=== PATIENT | female | born 1985 ===

== ENCOUNTER 2016-09-10 18:57 | Inpatient (IN) | payer MEDICAID, SELFPAY ==
[2016-09-10 19:30] VITALS: BMI 28.9
[2016-09-10 21:21] LABS: BASO # 0.1 K/uL (0.0-0.2); BASO % 0.6 % (0.0-2.0); EOS % 19.1 % (0.0-4.0); HEMATOCRIT 26.7 % (34.0-47.0); LYMPH # 1.7 K/uL (1.0-4.3); LYMPH % 16.6 % (20.0-40.0); MEAN CELL VOLUME 72.2 fl (81.0-99.0); MEAN CORPUSCULAR HEMOGLOBIN 22.3 pg (27.0-31.0); MEAN CORPUSCULAR HGB CONC 30.9 g/dL (33.0-37.0); MEAN PLATELET VOLUME 10.4 fl (7.2-11.7); MONO # 0.6 K/uL (0.0-0.8); MONO % 5.4 % (0.0-10.0); NEUT % 58.3 % (50.0-75.0); NRBC % 0.1 % (0.0-0.0); RED CELL DISTRIBUTION WIDTH 18.9 % (11.5-14.5); WHITE BLOOD COUNT 10.4 K/uL (4.8-10.8)
[2016-09-10 21:58] VITALS: BP 112/70; PULSE 106; RESP 18; TEMP 98; O2SAT 100
[2016-09-10] MEDS ORDERED: Lidocaine 1% Inj (20ml) ONE (22:12)
--- NOTE | 2016-09-11 00:19 | OBADHP ---
Datetime: 09/10/2016 19:27 IP Chief Complaint Other: BPD lagging by 4 weeks Admit Comment, IP Provider: 30 yo , At 39 weeks GA by LMP 12/12/15, first US at 6 weeks. KAMRAN: 09/17/16 presents to [facility] referred from the [facility] for IOL due to BPD lagging by 4 weeks. Patient denies uterine Ctx, LOF, VB, dysuria, fever, headache, N/V/D. care [facility]. last US 09/04/16 BPP 10/10, BOUBACAR: 10.6. POBHx: x 4 full term. Hx/o fast delivery.Anemia PGYnHx: Fibroids 2,4 cm retroplacental. LGSIL +HPV. Allergies: Penicillin (Ampicillin). Rash reaction, blurry vision Meds: PNV, Iron 1 tab TID x the last 2 weeks PSurgHx: Appendectomy PSHx: No ETOH,rect drugs, cig GBS: neg ABO-Rh: A+ Antibody: neg RPR: neg HIV: neg HBsAg: neg Rubella: immune GC/C: neg PPD: unknown.placed but did not go for reading.however,CXR neg. TDap: placed Flu: placed Assessment/Plan: 30 yo , At 39 weeks GA. IOL due to BPD lagging by 4 weeks. -Admit L _ D -Continous monitoring -CBC, Type screen -Cervidil Marion Cagle PGY [address] Hernandez ob pt seen _ exmined by me with dr. cagle. agree with above. Pelvic Type - PN: Adequate Extremities - PN: Normal Abdomen - PN: Normal Back - PN: Normal Breast - PN: Normal Lungs - PN: Normal Heart - PN: Normal Thyroid - PN: Normal Neurologic - PN: Normal HEENT - PN: Normal General - PN: Normal FHR - Baseline A Provider: 140 Membranes, Provider: Intact Contraction Comments Provider: irregular every 18 min Comments, ACOG Physical Exam: US Bedside: vertex Vital Signs Provider: Reviewed; Within Normal Limits IP Chief Complaint: Scheduled induction of labor; Other NICHD Variability Prov Fetus A: Moderate 6-25bpm NICHD Accel Fetus A IP Provider: [id number] FHR Category Provider Fetus A: Category I NICHD Decel Fetus A IP Provider: None Dilatation, Provider: closed Effacement, Provider: 50% Station, Provider: -3 Genitourinary Exam: Normal DTRs - PN: Normal IP Adm Impression: Term, intrauterine IP Admit Plan: Admit to unit
[2016-09-11] MEDS ORDERED: Lactated Ringer's 1,000 ML IV SCH (06:45)
[2016-09-11] MEDS ORDERED: Oxytocin 30 units/LR 500ML 30 U/500 ML BAG IV ONE (08:08)
[2016-09-11] MEDS ORDERED: Fentanyl/Bupivacaine HCl 250 ML EPI ONE (08:33)
[2016-09-11] MEDS ORDERED: Bupivacaine HCl 0.25% PF (10 ml) Inj ONE (08:33)
[2016-09-11] MEDS ORDERED: Oxytocin 30 units/LR 500ML 30 U/500 ML BAG IV SCH (10:40)
--- NOTE | 2016-09-11 10:49 | OBDS ---
MATERNAL INFORMATION Provider Comments: Pt pushed to deliver a viable female infant through clear fluid at 10:21 am. Apga rs 9 and 9. Wt 3025 gms, 6#10.7. Mouth and nares bulb-suctioned. Infant placed on mother's abdomen . Cord clamped and cut. Cord blood collected. Bladder emptied w/ red rubber catheter. Placenta de livered spontaneously intact w/ a 3vc at 10:27am. No tears. Pt and baby tolerated the procedure wel l. EBL 150 LABOR SUMMARY EDC: 09/17/2016 00:00 LABOR INFORMATION Cervical Ripening Agents: Cervidil MEMBRANES Membranes Rupture Method: Spontaneous Amniotic Fluid Color: Clear Amniotic Fluid Amount: Small Amniotic Fluid Odor: Normal
[2016-09-12 06:45] LABS: BASO # 0.1 K/uL (0.0-0.2); BASO % 0.8 % (0.0-2.0); EOS % 10.7 % (0.0-4.0); LYMPH % 21.3 % (20.0-40.0); MEAN CORPUSCULAR HEMOGLOBIN 22.5 pg (27.0-31.0); MEAN CORPUSCULAR HGB CONC 31.7 g/dL (33.0-37.0); MONO # 0.7 K/uL (0.0-0.8); MONO % 7.4 % (0.0-10.0); NEUT # 5.5 K/uL (1.8-7.0); NEUT % 59.8 % (50.0-75.0); NRBC % 0.1 % (0.0-0.0); WHITE BLOOD COUNT 9.3 K/uL (4.8-10.8)
--- NOTE | 2016-09-12 09:38 | OBPPN ---
Datetime: 09/12/2016 06:03 PP Pain Prov: Within normal limits PP Nausea Prov: Denies PP Flatus Prov: Yes PP BM Prov: No PP Breasts Prov: Normal PP Heart Prov: Normal PP Lungs Prov: Normal PP Abdomen/Uterus Prov: Normal PP Lochia Prov: Normal PP Vulva/Perineum Prov: Normal PP Extremities Prov: Normal PP C/S Incision Prov: Not Applicable PP Progress Prov: Normal PP Comments Phys Exam Prov: Uterus: firm above umbilicus PP Impression Prov: Normal progression PP Plan Prov: Continue present management PP Progress Note Prov: 30 y/o seen and examined at bedside. Patient had uneventful overnig ht. Patient reports mild pelvic pain controlled w/ pain meds. OOB/Ambulating w/o dizziness. Breast /bottle feeding w/o difficulty. Tolerating PO diet well. Lochia is less than menses in volume. Voi ding freely w/ no blood noted. Reports flatus but not bowel movement yest. Denies fevers, chills, n /v/d, CP/SOB, lightheadedness and calf pain. Assessment: 30 y/o s/p on 09/11/2016 @ 10:21 am tolerating pain w/ medication, cl ating oral intake, adequate urine output, doing well on PPD1. Plan: Ibuprofen 600 mg 1 tab Q6h PO prn for mild pain. -Percocet 5/325 mg 1-2 tabs PO Q6h prn for mod/severe pain. Encourage breast feeding and ambulation. Marion Barnes PGY-1 OBH ADDENDUM: pt seen _ examined by me. agree with above assessment and plan with following addition. she states she did not take fe supplementation. she denies sob, cp, fatigue, malaise, palpitations, syncope. o: hgb 7.6 this am i: chronic anemia p: IV Fe Sucrose x1 d/c home on Fe - imp of supplem d/w pt. Vital Signs Provider PP: Reviewed; Within Normal Limits
--- NOTE | 2016-09-13 09:41 | OBPPN ---
Datetime: 09/13/2016 05:59 PP Pain Prov: Within normal limits PP Nausea Prov: Denies PP Flatus Prov: Yes PP BM Prov: Yes PP Breasts Prov: Normal PP Heart Prov: Normal PP Lungs Prov: Normal PP Abdomen/Uterus Prov: Normal PP Lochia Prov: Normal PP Vulva/Perineum Prov: Normal PP CVA Tenderness Prov: Normal PP Extremities Prov: Normal PP C/S Incision Prov: Not Applicable PP Progress Prov: Normal PP Comments Phys Exam Prov: Uterus: fundus firm below umbilicus, minimal lochia, non foul smelling PP Impression Prov: Normal progression PP Plan Prov: Continue present management PP Progress Note Prov: 30 y/o seen and examined at bedside. Patient had uneventful overnig ht. Patient reports mild pelvic pain controlled w/ pain meds. OOB/Ambulating w/o dizziness. Breast /bottle feeding w/o difficulty. Tolerating PO diet well. Lochia is less than menses in volume. Voi ding freely w/ no blood noted. Reports flatus and 1 bowel movement yesterday night. Denies fevers, chills, n/v/d, CP/SOB, lightheadedness and calf pain. Patient with Hgb: 7,6 , asymptomatic . P denies any lightheadnes, dizzyness, Cp< SOB. Assessment: 30 y/o s/p on 09/11/2016 @ 10:21 am tolerating pain w/ medication, cl ating oral intake, adequate urine output, doing well on PPD2. with chronic asympoamtic anemia, Plan: Ibuprofen 600 mg 1 tab Q6h PO prn for mild pain. -Ferrous Sulfate 1 tab PO BID Encourage breast feeding and ambulation. -Discharge Home -precautions given, if lightheadnes, dizzyness, CP, SOB, more than 2 pads/ hour of vaginal bleedig n, increased pain go to [facility] ER and call MD Marion Barnes PGY-1 imporatnce of iron/medication compliance d/w patien agree with above R Tanvir< MD Vital Signs Provider PP: Reviewed; Within Normal Limits
--- NOTE | 2016-09-13 09:41 | OBDCSUM ---
Datetime: 09/13/2016 06:01 Discharged to, Provider: Home Follow up at, Provider: [facility] Disch Instr Activity: Normal activity; May Shower Disch Instr Diet: Regular Discharge Instructions, Provider: Routine instructions given Discharge Diagnosis, Provider: Term Delivered Discharge Time: 09/13/2016 06:01 Follow up in weeks, Provider: 6 weeks Disch Activity Restrictions: No exercising; No lifting; No sexual activity; Nothing in vagina - Inte rcourse, tampons, douche Discharge Comment, Provider: 30 y/o s/p C @ 39 weeks GA Delivered baby girl on 09/11/16 @ 10:21 am ,weight 3025 g , : 9-9 Patient doing well, stable for discharge. Prescription given for pain -Encourage -Tylenol 600 mg PO 1 tab PO Q6h for pain PRN -Discharge today Ambulate w/ caution, nothing in vagina, no heavy lifting, avoid stairs, if excessive bleeding or f ever without relief from Tylenol go to ED - Advised for F/U [facility] clinic in 6 week and 2-3 days for with peditrician. Marion Barnes PGY 1 Pt advised if lightheadness, dizzyness, CP, SOB, heavy vaginal bleedign more than 2 pads,/ hour, l arge clots, increaing pain go to nearst ER and follow up with doctor Contraception after Delivery: Not Planning to Use
== END 2016-09-13 13:15 | disposition home or self-care (01) | DRG 775 ==
LOC: H.EROB2 18:57 → H.L&D 20:26 → H.OB/GYN 09-11 13:00
PROVIDERS: ADMIT Obstetrics & Gynecology; ATTEND Obstetrics & Gynecology
PROC: 10E0XZZ Delivery of Products of Conception, External Approach (ICD-10-PCS; principal; 2016-09-10)
PROC: 4A1HXCZ Monitoring of Products of Conception, Cardiac Rate, External Approach (ICD-10-PCS; 2016-09-10)
DX: O36.5930 Maternal care for other known or suspected poor fetal growth, third trimester, not applicable or unspecified (principal); D64.9 Anemia, unspecified; Z37.0 Single live birth; O99.02 Anemia complicating childbirth; Z3A.39 39 weeks gestation of pregnancy